=== PATIENT | female | born 1935 | race Caucasian/White ===

== ENCOUNTER 2019-03-03 10:38 | Outpatient (CLI) | payer MEDICARE, OTHER | END 2019-03-03 10:39 | disposition home or self-care (01) | LOC: SC 10:38 | PROVIDERS: ATTEND Nurse Practitioner Family | DX: G47.33 Obstructive sleep apnea (adult) (pediatric) (principal) | CPT/HCPCS: 99205; G0463; 99212 ==

== ENCOUNTER 2019-04-09 20:31 | Outpatient (CLI) | payer MEDICARE, OTHER | END 2019-04-09 20:32 | disposition home or self-care (01) | LOC: SC 20:31 | PROVIDERS: ATTEND Internal Medicine Pulmonary Disease | DX: G47.61 Periodic limb movement disorder (principal) | CPT/HCPCS: 95810 ==

== ENCOUNTER 2019-05-03 08:36 | Outpatient (CLI) | payer MEDICARE, OTHER | END 2019-05-03 08:37 | disposition home or self-care (01) | LOC: SC 08:36 | PROVIDERS: ATTEND Nurse Practitioner Family | DX: G47.33 Obstructive sleep apnea (adult) (pediatric) (principal); G47.61 Periodic limb movement disorder | CPT/HCPCS: 99214; G0463; 99212 ==

== ENCOUNTER 2019-05-24 20:24 | Outpatient (CLI) | payer MEDICARE, OTHER | END 2019-05-24 20:25 | disposition home or self-care (01) | LOC: SC 20:24 | PROVIDERS: ATTEND Nurse Practitioner Family | DX: G47.33 Obstructive sleep apnea (adult) (pediatric) (principal); G47.61 Periodic limb movement disorder; E66.9 Obesity, unspecified; Z68.32 Body mass index [BMI] 32.0-32.9, adult | CPT/HCPCS: 95810 ==

== ENCOUNTER 2019-06-22 10:03 | Outpatient (CLI) | payer MEDICARE, OTHER ==
[2019-06-22 11:16] VITALS: BP 136/68
--- NOTE | 2019-06-22 11:16 | SLEEP CARE CONSULTATION ---
Information from patient questionnaire entered by Vivienne Nunez. I have reviewed and concur with the information entered by Vivienne Nunez. This document represents the service I personally performed and the decisions made by me, Linette Amezquita, RN, MSN, [employer]. History of Present Illness Previous diagnosis: Mild, Obstructive Sleep Apnea-Hypopnea Syndrome AHI: 7.9 Reason for CPAP/BiPAP follow up: with sleep study, other (TWO MONTH follow up of CPAP compliance ) Accompanied by: Spouse Equipment type: CPAP Equipment obtained from: [employer] Mask style: Nasal Mask brand: Respironics Backup mask available: Yes Last cushion change: about 2 months ago HPI additional information: Patient returns for follow up of recent sleep study re evaluation as diagnostic polysomnography not available. First re evaluation her sleep was very poor and limited due to GI illness. A sleep study is needed for her to continue to get her CPAP supplies and update her CPAP device. Sleep Study - Polysomnography Polysomnography findings: The quality of the study is good. The patient had reduced sleep efficiency due to a prolonged awakening in the middle of the night. The sleep architecture was abnormal for sleep fragmentation and reduced amount of time spent in REM and slow wave sleep (N3). Respiratory monitoring showed mild obstructive sleep apnea-hypopnea (AHI = 7.9) associated with frequent arousals, oxyhemoglobin desaturation and moderate hypoxia (hue oxygen saturation of 78%). Baseline oxygen saturation was normal. The respiratory events occurred mainly during REM sleep (supine AHI = 7.8; non-supine = 14.63). Snore was moderate in intensity. There was severe periodic leg movement of sleep contributing to the sleep fragmentation. Cardiac rhythm was normal sinus rhythm without significant arrhythmia. No abnormal behavior (parasomnia) observed during the night. CPAP Compliance Data - Data Reviewed with Patient Average duration of nightly device use: 8.5 HR Compliance rate %: 76.7 (uses old CPAP for travel) Current pressure setting (cmH2O): 8 Average residual AHI: 2.1 Average large leak: 11minutes Subjective Patient concerns: reports: dry mouth, nose, throat (during the day due to medications and no worse with CPAP use. ), other (patient observed by spouse to breath her mouth sometimes. ). denies: aerophagia, mask discomfort, air blowing in eyes, mask leak noise, condensation in mask/hose (does not use humidifier as had condensation with use - no heated hose), nasal congestion, epistaxis Observed to snore while using device: No On therapy, patient: reports: sleeping better Initial [place] Sleepiness Scale score: 6 Current [place] Sleepiness Scale score: 6 Allergies and Home Medications Known drug allergies: Yes (sulfa, arava, mevacore, shell fish) Home medication list reviewed: Yes Allergy and home medication list: Medication Name (generic/name brand) Strength & Dosage Warfarin (Coumadin) 4-6mg tab as directed daily PM Levothyroxine (Synthroid) 150mcg tab one daily Amlodipine Besylate (Norvasc) 5mg tab one twice daily Carvedilol (Coreg) 6.25mg tab one twice daily Clopidogrel (Plavix) 75mg tab one daily Fluoxetine (Prozac) 20mg tab one daily Furosemide (Lasix) 40mg tab one daily Amitriptyline (Elavil) 20mg tab one daily at bedtime Isosorbide (Imdur) 60mg tab one daily Advair Diskus 250/50mcg One puff twice daily Albuterol (ProAir) MDI 90 mcg As needed Amoxicillin 500mg tab prophylaxis for dental work Crestor (Rosuvastatin) 40mg tab one daily at bedtime Tramadol 50mg tab one twice daily and bedtime Klor-Con (Potassium 150mcg one daily Hydrocortisone 5mg tab three daily Acetaminophen 500mg tab three daily at bedtime B12 Sublingual 500mcg tab three daily Calcium + Vit D 500mg-200IU tab one twice daily Flonase 50mcg Nasal [place] One stray each nostril daily Folic Acid 1mg tab one daily Polyethyl Glycol (Miralax) As needed Multivitamin Tab one daily Allergy List Sulfa Drugs Arava [place] Shellfish Review of Systems Review of systems same as previous: Yes Physical Exam Blood Pressure: 136/68 Cuff size: long Heart Rate: 65 O2 Saturation: 96 Weight (kg): 93.984 kg Impression and Plan 1. Obstructive Sleep Apnea-Hypopnea Syndrome, mild, with unknown treatment compliance and unknown apnea control as I was unable to download her card with new system. I will keep card to download later. She also uses her old CPAP with travel and will bring that in next month when returns from vacation. I will contact patient with Compliance results when obtained. On CPAP therapy, there is improved sleep quality. Her recent polysomnography showed mild apnea but used CPAP the night before so severity may have been worse due to residual benefit of CPAP use the night before. Now that we have a recent polysomnography, I will update supplies and CPAP device as it is over 5 years old. She prefers the Dreamstation after new devices shown in office. Current CPAP humidity system has condensation with use. Newer devices have a better humidity system and a heated hose to prevent condensation. With her oral dryness, it would be helpful to have a better humidity system to reduce symptoms. Compliance guidelines reviewed for new device. Patient's apnea severity and rationale for treatment to reduce apnea, improve sleep quality and reduce cardiovascular and cerebrovascular events was reviewed. I also reviewed the benefit of consistent device use of CPAP for hypertension, cardiac disease, cerebrovascular disease, arrhythmia, diabetes, depression/anxiety. 2. Periodic limb movement,severe, that did fragment patients sleep. This was present at last sleep study as well. Spouse has noted patient moving legs frequently when he comes to bed. She was advised to follow up with her PCP for further evaluation and has not been able to see PCP yet. Due to history of anemi a, this could be cause of present symptoms. Patient has new PCP and plans on discussing at her appointment. * Continue CPAP pressure at 8 cmH2O * Compliance download of home and travel CPAP. * Update CPAP and supplies * Follow up with PCP for further evaluation of PLMS such as iron deficiency anemia * Notify me if snoring with mask or feeling that the pressure is too much or too little * Attempt to lose weight * Return for follow up in 1 month after new device , or sooner if concerns arise Addendum: Compliance report was downloaded later and showed good compliance of home CPAP. Call placed to patient but no answer. 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 I will write a prescription to update CPAP and supplies. I spent 100% of this [45] minute visit face to face with the patient with greater than 50% of this was spent time counseling the patient and coordination of care.
== END 2019-06-22 10:04 | disposition home or self-care (01) ==
LOC: SC 10:03
PROVIDERS: ATTEND Nurse Practitioner Family
DX: G47.33 Obstructive sleep apnea (adult) (pediatric) (principal); G47.61 Periodic limb movement disorder
CPT/HCPCS: 99215; G0463; 99212

== ENCOUNTER → 2022-04-17 | Outpatient (CLI) | payer MEDICARE, OTHER | END | disposition short-term general hospital (02) | LOC: EMS 06:55 | DX: R06.00 Dyspnea, unspecified (principal); R06.2 Wheezing; R05.9 Cough, unspecified | CPT/HCPCS: A0425; A0427; A0888 ==

== ENCOUNTER 2023-07-01 15:13 | Outpatient (CLI) | payer MEDICARE, OTHER ==
[2023-07-01 15:50] LABS: INR 2.3 (0.8-1.2); PT - PROTHROMBIN TIME 23.5 secs (9.9-12.6)
== END 2023-07-01 15:14 | disposition home or self-care (01) ==
LOC: LAB.R 15:13
PROVIDERS: ATTEND Pharmacist
DX: I48.91 Unspecified atrial fibrillation (principal)
CPT/HCPCS: 85610

== ENCOUNTER 2024-07-24 10:48 | Outpatient (CLI) | payer MEDICARE, OTHER | END 2024-07-24 23:59 | disposition EMS.NT | LOC: EMS 10:48 | DX: Z03.89 Encounter for observation for other suspected diseases and conditions ruled out (principal) ==